=== PATIENT | female | born 1980 | race Two or more races ===

== ENCOUNTER 2017-11-10 09:27 | Emergency (ER) | payer MEDICAID ==
[~2017-11-10] VITALS: Ht 152.4 cm; Wt 120.2 kg
[~2017-11-10 09:27] MED LIST: CEPH-37 PO; IBUP800T24 PO
[2017-11-10 11:44] VITALS: BP 147/97
[2017-11-10] MEDS ORDERED: KETOROLAC TROMETH 60MG/2ML VIAL IM ONE (12:15)
== END 2017-11-10 12:42 | disposition home or self-care (01) ==
LOC: ER 09:32
DX: R51 Headache (principal); J45.909 Unspecified asthma, uncomplicated; Z90.49 Acquired absence of other specified parts of digestive tract; Z85.810 Personal history of malignant neoplasm of tongue
CPT/HCPCS: 70450; 96372; 99284; J1885

== ENCOUNTER 2018-01-22 17:23 | Observation (INO) | payer MEDICAID ==
[~2018-01-22] VITALS: Ht 152.4 cm; Wt 119.3 kg
[2018-01-22 19:28] LABS: Basophils # (auto) 0 uL; Basophils % (auto) 0.4 % (0.0-2.0); Eosinophils # (auto) 0.3 uL; Eosinophils % (auto) 2.6 % (0.0-7.0); Hematocrit 33.4 % (36.0-46.0); Hemoglobin 11.4 g/dL (12.2-16.2); Lymphocytes # (auto) 1.9 uL; Lymphocytes % (auto) 19.2 % (10.0-50.0); Mean Corpuscular Volume 85.3 fL (80.0-100.0); Monocytes # (auto) 0.6 uL; Monocytes % (auto) 6.4 % (0.0-12.0); Neutrophils # (auto) 6.9 uL; Neutrophils % (auto) 71.4 % (37.0-80.0); Nucleated Red Blood Cells % 0.1 %; Platelet Count (auto) 426 10^3/uL (140-450); Red Blood Cells 3.92 10^6/uL (4.0-5.20); Red Cell Distribution Width 14.6 % (11.8-14.3); White Blood Cell 9.7 10^3/uL (4.4-10.8)
[2018-01-22 19:49] LABS: INR 0.93 (0.9-1.15)
[2018-01-22 19:50] LABS: Partial Thromboplastin Time 25.2 sec (23.78-33.04)
[2018-01-22 19:53] LABS: Alanine Aminotransferase 65 U/L (13-56); Albumin 3.2 g/dL (3.4-5.0); Alkaline Phosphatase 107 U/L (45-117); Anion Gap 10 (5-15); Aspartate Aminotransferase 26 U/L (15-37); BUN/Creatinine Ratio 26.4; Bilirubin, Total 0.4 mg/dL (0.2-1.0); Blood Urea Nitrogen 19 mg/dL (7-18); Calcium 8.8 mg/dL (8.5-10.1); Carbon Dioxide 24 mmol/L (21-32); Chloride 104 mmol/L (98-107); GFR African American 117 mL/min; GFR Non-African American 96 mL/min; Glucose 85 mg/dL (74-106); Magnesium 2.7 mg/dL (1.6-2.6); Sodium 138 mmol/L (136-145)
[2018-01-22] MEDS ORDERED: LORazepam 2MG/ML-1ML VIAL IV ONE (20:15)
[2018-01-23] MEDS ORDERED: IOHEXOL 350 MG/ML 100ML IJ ONE (00:55)
[2018-01-23] MEDS ORDERED: LORazepam 2MG/ML-1ML VIAL IV ONE (04:30)
[2018-01-23] MEDS ORDERED: ALBUTEROL SULF 2.5 MG/0.5ML(0.5%) NEB SOLN NEB ONE ×2 (10:15→12:45)
[2018-01-23] MEDS ORDERED: IPRATROPIUM BROM 0.5 MG/2.5ML INH SOL NEB ONE ×2 (10:15→12:45)
[2018-01-23 11:34] VITALS: BP 90/64
[2018-01-23] MEDS ORDERED: NEOMYCIN-BACITRACIN-POLYM 15GM TOP OINT TOP ONE ×2 (12:19)
== END 2018-01-23 14:14 | disposition home or self-care (01) | DRG 143 ==
LOC: ER 17:23 → OVERFLOW 17:24 → ER 01-23 14:14
PROVIDERS: ADMIT Anesthesiology; ATTEND Anesthesiology
DX: J95.00 Unspecified tracheostomy complication (principal); R04.2 Hemoptysis; R05 Cough; J45.909 Unspecified asthma, uncomplicated; Z90.49 Acquired absence of other specified parts of digestive tract
CPT/HCPCS: 36415; 70491; 71045; 71275; 80053; 83735; 83880; 84484; 85025; 85610; 85730; 93005; 94640; 94761; 96374; 96376; 99285; G0378; J2060; J7030; Q9967

== ENCOUNTER 2019-05-28 17:43 | Emergency (ER) | payer MEDICAID ==
[~2019-05-28] VITALS: Ht 160 cm; Wt 97.5 kg
[~2019-05-28 17:43] MED LIST changes: -CEPH-37 PO; +FAM20T PO; +HYDR-4833 PO; -IBUP800T24 PO; +LORA-655 PO
[2019-05-28 19:51] VITALS: BP 121/61
[2019-05-28 20:03] LABS: Basophils # (auto) 0 uL; Basophils % (auto) 0.3 % (0.0-2.0); Eosinophils # (auto) 0.1 uL; Eosinophils % (auto) 1.1 % (0.0-7.0); Hematocrit 38.8 % (36.0-46.0); Hemoglobin 12.8 g/dL (12.2-16.2); Lymphocytes % (auto) 14.6 % (10.0-50.0); Mean Corpuscular Hemoglobin 27.7 pg (28.0-32.0); Mean Corpuscular Hgb Conc. 32.9 g/dL (32.0-36.0); Mean Corpuscular Volume 84.4 fL (80.0-100.0); Monocytes # (auto) 0.3 uL; Monocytes % (auto) 5.1 % (0.0-12.0); Neutrophils # (auto) 5.3 uL; Neutrophils % (auto) 78.9 % (37.0-80.0); Platelet Count (auto) 350 10^3/uL (140-450); Red Cell Distribution Width 14.3 % (11.8-14.3); White Blood Cell 6.8 10^3/uL (4.4-10.8)
[2019-05-28 21:08] LABS: Albumin 3.6 g/dL (3.4-5.0); Calcium 8.7 mg/dL (8.5-10.1); Potassium 3.9 mmol/L (3.5-5.1)
[2019-05-28 21:10] LABS: BUN/Creatinine Ratio 14.6
[2019-05-28 21:13] LABS: Bilirubin, Total 0.4 mg/dL (0.2-1.0); Total Protein 7.7 g/dL (6.4-8.2)
== END 2019-05-28 23:08 | disposition home or self-care (01) ==
LOC: ER 17:43
DX: C15.9 Malignant neoplasm of esophagus, unspecified (principal); K14.8 Other diseases of tongue; J45.909 Unspecified asthma, uncomplicated
CPT/HCPCS: 36415; 70450; 70490; 80053; 85025

== ENCOUNTER 2019-12-01 23:16 | Emergency (ER) | payer OTHER, MEDICAID ==
[~2019-12-01] VITALS: Ht 152.4 cm; Wt 77.1 kg
[~2019-12-01 23:16] MED LIST changes: -FAM20T PO; +FAMO20TA10 PO
[2019-12-02] MEDS ORDERED: MORPHINE SULFATE 4 MG/ML SYR/VIAL IV ONE (00:30)
[2019-12-02] MEDS ORDERED: ONDANSETRON HCL 4 MG/2 ML VIAL IV ONE (00:30)
[2019-12-02 01:35] LABS: Basophils # (auto) 0 10 ^3/uL (0-0.2); Basophils % (auto) 0.6 % (0.0-2.0); Eosinophils # (auto) 0.1 10 ^3/uL (0-0.8); Hematocrit 33.7 % (36.0-46.0); Lymphocytes % (auto) 14.7 % (10.0-50.0); Mean Corpuscular Hemoglobin 26.4 pg (28.0-32.0); Mean Corpuscular Hgb Conc. 32.6 g/dL (32.0-36.0); Mean Corpuscular Volume 81.1 fL (80.0-100.0); Monocytes # (auto) 0.5 10 ^3/uL (0-1.3); Monocytes % (auto) 7.3 % (0.0-12.0); Neutrophils # (auto) 5.4 10 ^3/uL (1.6-8.6); Neutrophils % (auto) 76.4 % (37.0-80.0); Platelet Count (auto) 377 10^3/uL (140-450); Red Blood Cells 4.15 10^6/uL (4.0-5.20); Red Cell Distribution Width 17.9 % (11.8-14.3); White Blood Cell 7.1 10^3/uL (4.4-10.8)
[2019-12-02 01:57] LABS: Albumin 3.5 g/dL (3.4-5.0); BUN/Creatinine Ratio 22.6; Calcium 8.8 mg/dL (8.5-10.1); Potassium 3.6 mmol/L (3.5-5.1)
[2019-12-02 02:00] LABS: Bilirubin, Total 0.8 mg/dL (0.2-1.0); Total Protein 7.7 g/dL (6.4-8.2)
[2019-12-02 02:43] VITALS: BP 124/88
[2019-12-02] MEDS ORDERED: HYDROmorphone HCL 2 MG/ML VL IV ONE (03:30)
== END 2019-12-02 03:53 | disposition home or self-care (01) ==
LOC: ER 23:16
DX: S16.1XXA Strain of muscle, fascia and tendon at neck level, initial encounter (principal); J02.9 Acute pharyngitis, unspecified; Z85.810 Personal history of malignant neoplasm of tongue; Z93.0 Tracheostomy status; X58.XXXA Exposure to other specified factors, initial encounter; Y93.9 Activity, unspecified; Y92.89 Other specified places as the place of occurrence of the external cause; Y99.8 Other external cause status
CPT/HCPCS: 36415; 70450; 72125; 80053; 85025; 96374; 96375; 99285; J1170; J2270; J2405

== ENCOUNTER 2019-12-16 19:21 | Emergency (ER) | payer OTHER, MEDICAID ==
[~2019-12-16] VITALS: Ht 157.5 cm; Wt 68.0 kg
[2019-12-16] MEDS ORDERED: MORPHINE SULFATE 4 MG/ML SYR/VIAL IV ONE ×2 (20:15→23:30)
[2019-12-16] MEDS ORDERED: PROMETHAZINE HCL 25 MG/ML 1ML IV ONE (20:15)
[2019-12-16 21:08] LABS: Basophils # (auto) 0 10 ^3/uL (0-0.2); Eosinophils # (auto) 0 10 ^3/uL (0-0.8); Eosinophils % (auto) 0.2 % (0.0-7.0); Lymphocytes # (auto) 0.6 10 ^3/uL (0.4-5.4); Monocytes # (auto) 0.6 10 ^3/uL (0-1.3); Nucleated Red Blood Cells % 0.1 %
[2019-12-16 21:10] LABS: Basophils % (auto) 0.2 % (0.0-2.0); Hematocrit 39.8 % (36.0-46.0); Hemoglobin 13.1 g/dL (12.2-16.2); Lymphocytes % (auto) 5.3 % (10.0-50.0); Mean Corpuscular Hemoglobin 27.1 pg (28.0-32.0); Mean Corpuscular Hgb Conc. 32.9 g/dL (32.0-36.0); Mean Corpuscular Volume 82.4 fL (80.0-100.0); Monocytes % (auto) 5.1 % (0.0-12.0); Neutrophils # (auto) 10.5 10 ^3/uL (1.6-8.6); Neutrophils % (auto) 89.2 % (37.0-80.0); Platelet Count (auto) 418 10^3/uL (140-450); Red Blood Cells 4.83 10^6/uL (4.0-5.20); Red Cell Distribution Width 17.2 % (11.8-14.3); White Blood Cell 11.8 10^3/uL (4.4-10.8)
[2019-12-16 21:26] LABS: Alanine Aminotransferase 17 U/L (13-56); Albumin 3.6 g/dL (3.4-5.0); Anion Gap 11 (5-15); Aspartate Aminotransferase 8 U/L (15-37); BUN/Creatinine Ratio 18.7; Blood Urea Nitrogen 14 mg/dL (7-18); Carbon Dioxide 26 mmol/L (21-32); Chloride 98 mmol/L (98-107); GFR African American 110 mL/min; GFR Non-African American 91 mL/min; Glucose 118 mg/dL (74-106); Magnesium 1.9 mg/dL (1.6-2.6); Sodium 135 mmol/L (136-145)
[2019-12-16 21:31] LABS: Alkaline Phosphatase 69 U/L (45-117); Bilirubin, Total 0.8 mg/dL (0.2-1.0); INR 1.08 (0.9-1.15); Partial Thromboplastin Time 23.6 sec (23.64-32.05); Total Protein 7.9 g/dL (6.4-8.2)
[2019-12-16] MEDS ORDERED: PANTOPRAZOLE 40mg/50ML NS AE 50 ML IV ONE (22:45)
[2019-12-16] MEDS ORDERED: POTASSIUM CHL 20MEQ/100ML 100 ML IV ONE (22:45)
[2019-12-16] MEDS ORDERED: PANTOPRAZOLE 40 MG/10 ML VIAL INJ IV ONE (22:45)
[2019-12-17] MEDS ORDERED: HYDROmorphone HCL 2 MG/ML VL IV ONE ×3 (07:00→21:00)
[2019-12-17] MEDS ORDERED: ONDANSETRON HCL 4 MG/2 ML VIAL IV ONE ×2 (07:00→16:45)
[2019-12-17] MEDS ORDERED: ACETAMINOPHEN 650 mg PER 20 mL UD PO ONE (09:45)
[2019-12-17 16:37] LABS: Urine Amorphous Crystal FEW /hpf (None Seen); Urine Bacteria FEW /hpf (None Seen); Urine Blood Negative /uL (Negative); Urine Mucus MODERATE (None Seen); Urine Specific Gravity 1.024 (1.001-1.035); Urine WBC 12 /hpf (0 - 5)
[2019-12-18] MEDS ORDERED: HYDROmorphone HCL 2 MG/ML VL IV ONE
[2019-12-18 00:23] VITALS: BP 121/77
== END 2019-12-17 22:50 | disposition short-term general hospital (02) ==
LOC: EDBD 19:21 → ER 19:23
DX: K92.2 Gastrointestinal hemorrhage, unspecified (principal); C79.89 Secondary malignant neoplasm of other specified sites; E87.6 Hypokalemia; R04.1 Hemorrhage from throat; R11.2 Nausea with vomiting, unspecified; R51 Headache; J45.909 Unspecified asthma, uncomplicated; Z90.49 Acquired absence of other specified parts of digestive tract; Z20.828 Contact with and (suspected) exposure to other viral communicable diseases
CPT/HCPCS: 36415; 70450; 70486; 71045; 71250; 72125; 80053; 81001; 83735; 83880; 84132; 84484; 85025; 85610; 85730; 93005; 96365; 96366; 96368; 96375; 96376; 99285; C9113; C9803; J1170; J2270; J2405; J2550; J3480; J7030; U0003